=== PATIENT | male | born 1990 | race Caucasian/White ===

== ENCOUNTER 2017-09-11 20:22 | Emergency (ER) | payer BC, OTHER ==
[2017-09-11 20:36] VITALS: BP 146/81
[2017-09-11] MEDS ORDERED: Lidocaine 1% 50 ML MDV INJECT ONE (21:07)
--- NOTE | 2017-09-11 21:30 | EDM.PDOC ---
ED HPI GENERAL MEDICAL PROBLEM - General Chief Complaint: Laceration Stated Complaint: CUT ABOVE RIGHT EYE Time Seen by Provider: 09/11/17 20:32 Source of Information: Reports: Patient, RN Notes Reviewed - History of Present Illness INITIAL COMMENTS - FREE TEXT/NARRATIVE: 26 year old male suffered lac to R eyebrow area playing softball, took a knee to the eyebrow, no LOC, mild localized pain, moderate bleeding has stopped. no other injury. Right Eye Pain Score (Numeric/FACES): 7 - Related Data Allergies Allergy/AdvReac Type Severity Reaction Status Date / Time Tetanus Vaccines and Toxoid Allergy cant Verified 09/11/17 20:38 remember Home Meds: Home Meds . [No Known Home Meds] 09/11/17 [History] Past Medical History - Past Health History Medical/Surgical History: Denies Medical/Surgical History Social & Family History - Tobacco Use Smoking Status *Q: Never Smoker - Caffeine Use Caffeine Use: Reports: None - Recreational Drug Use Recreational Drug Use: No ED ROS GENERAL - Review of Systems Review Of Systems: See Below Constitutional: Reports: No Symptoms HEENT: Reports: Other (lac R eyebrow) Respiratory: Reports: No Symptoms Cardiovascular: Denies: Chest Pain GI/Abdominal: Denies: Abdominal Pain, Nausea, Vomiting Musculoskeletal: Denies: Neck Pain Neurological: Denies: Dizziness, Headache ED EXAM, SKIN/RASH Exam: See Below General Appearance: Alert, No Apparent Distress Eye Exam: Bilateral Eye: PERRL Ears: Normal External Exam Nose: Normal Inspection Throat/Mouth: Normal Inspection Head: Other (2 cm lac R eybrow, jagged, gaping) Respiratory/Chest: No Respiratory Distress Neurological: Alert, Oriented, No Motor/Sensory Deficits Skin: Warm, Dry, Normal Color ED SKIN PROCEDURES - Laceration/Wound Repair Right Face Lac/Wound length In cm: 2 Appearance: Stellate, Irregular Distal NVT: Neuro & Vascular Intact Anesthetic Type: Local Local Anesthesia - Lidocaine (Xylocaine): 1% Plain Skin Prep: Saline Suture Size: 4-0 # of Sutures: 6 Course - Vital Signs Last Recorded V/S: Last Vital Signs Temp 99.4 F 09/11/17 20:32 Pulse 81 09/11/17 20:32 Resp 18 09/11/17 20:32 BP 146/81 H 09/11/17 20:32 Pulse Ox 99 09/11/17 20:32 - Orders/Labs/Meds Meds: Medications Discontinued Medications Generic Name Dose Route Start Last Admin Trade Name La PRN Reason Stop Dose Admin Lidocaine HCl 50 ml 09/11/17 21:07 09/11/17 21:12 Xylocaine 1% INJECT 09/11/17 21:08 50 ml ONETIME ONE Administration Departure - Departure Time of Disposition: 21:50 Disposition: Home, Self-Care 01 Condition: Fair Clinical Impression: Facial laceration Qualifiers: Encounter type: initial encounter Qualified Code(s): S01.81XA - Laceration without foreign body of other part of head, initial encounter - Discharge Information Referrals: PCP,None [Primary Care Provider] - Forms: ED Department Discharge Additional Instructions: laceration care instr., antibiotic ointment 2 to 3 times daily, stitches out in about 7 days, there is no charge if you have those taken out at our [facility], call [phone] for appt.
== END 2017-09-11 22:00 | disposition home or self-care (01) ==
LOC: JD.ED 20:22
DX: S01.111A Laceration without foreign body of right eyelid and periocular area, initial encounter (principal); W51.XXXA Accidental striking against or bumped into by another person, initial encounter; Y93.64 Activity, baseball; Z88.7 Allergy status to serum and vaccine
CPT/HCPCS: 12011; 96361; 96374; 96375; 99282-25; 99284-25

== ENCOUNTER 2020-09-23 19:59 | Emergency (ER) | payer BC, OTHER ==
[2020-09-23 20:10] VITALS: BP 124/75; PULSE 83
[2020-09-23] MEDS ORDERED: Sodium Chloride 0.9% 10 ML Syringe FLUSH PRN (20:18)
--- NOTE | 2020-09-23 20:23 | EDM.PDOC ---
ED HPI GENERAL MEDICAL PROBLEM - General Chief Complaint: Abdominal Pain Stated Complaint: abdominal pain Time Seen by Provider: 09/23/20 20:10 Source of Information: Reports: Patient, RN Notes Reviewed History Limitations: Reports: No Limitations - History of Present Illness INITIAL COMMENTS - FREE TEXT/NARRATIVE: Patient is a 29-year-old male who presents to the ER for the evaluation of his severe abdomen pain. Notes this is periumbilical in nature, seems to worsen more when he does any sort of twisting movements. He is not had pain like this before ever. He is not taking any sort of medications for this. Patient is pretty physically fit, notes that he did some heavy squatting exercises on Saturday, he took yesterday off, and today his belly pain has become more severe. He has had chills, some shortness of breath, but no fevers, runny cough, or any sort of nausea/vomiting/diarrhea, he denies any sort of urinary issues. Further denies any past medical history, does not take any regular medications, and notes he has no bad habits like smoking drinking or doing drugs. Further denies any sort of abdomen surgeries. Patient notes the pain is a sharp stabbing pain in nature, seems to come and go, definitely worsens with movement and gets better when he is laying still. Abdomen Pain Score (Numeric/FACES): 7 - Related Data Allergies Allergy/AdvReac Type Severity Reaction Status Date / Time Tetanus Vaccines and Toxoid Allergy cant Verified 09/23/20 20:10 remember Home Meds: Home Meds . [No Known Home Meds] 09/11/17 [History] Past Medical History - Past Health History Medical/Surgical History: Denies Medical/Surgical History Social & Family History - Tobacco Use Tobacco Use Status *Q: Never Tobacco User - Caffeine Use Caffeine Use: Reports: None - Recreational Drug Use Recreational Drug Use: No ED ROS GENERAL - Review of Systems Review Of Systems: Comprehensive ROS is negative, except as noted in HPI. ED EXAM, GI/ABD - Physical Exam Exam: See Below Exam Limited By: No Limitations General Appearance: Alert, WD/WN, No Apparent Distress Respiratory/Chest: No Respiratory Distress, Lungs Clear, Normal Breath Sounds, No Accessory Muscle Use, Chest Non-Tender Cardiovascular: Normal Peripheral Pulses, Regular Rate, Rhythm, No Edema GI/Abdominal Exam: Normal Bowel Sounds, Soft, No Distention, No Mass, Tender (periumbilical, some RLQ rebound tenderness) Extremities: Normal Inspection, Normal Capillary Refill Neurological: Alert, Oriented, Normal Cognition, No Motor/Sensory Deficits Psychiatric: Normal Affect, Normal Mood Skin Exam: Warm, Dry, Intact, Normal Color, No Rash Course - Vital Signs Last Recorded V/S: Last Vital Signs Temp 97.9 F 09/23/20 20:07 Pulse 83 09/23/20 20:07 Resp 16 09/23/20 20:07 BP 124/75 09/23/20 20:07 Pulse Ox 96 09/23/20 20:07 - Orders/Labs/Meds Orders: Active Orders 24 hr Category Date Time Status Peripheral IV Care [RC] . DIRECTED Care 09/23/20 20:18 Ordered Sodium Chloride 0.9% [Normal Saline] 1,000 ml Med 09/23/20 21:23 Ordered IV ONETIME Sodium Chloride 0.9% [Normal Saline] 100 ml Med 09/23/20 21:00 Active IV ASDIRECTED Sodium Chloride 0.9% [Saline Flush] Med 09/23/20 20:18 Ordered 10 ml FLUSH ASDIRECTED PRN Sodium Chloride 0.9% [Saline Flush] Med 09/23/20 21:00 Active 10 ml FLUSH BOLUS Peripheral IV Insertion Adult [OM.PC] Routine Oth 09/23/20 20:17 Ordered Medication Orders Sodium Chloride (Normal Saline) 100 mls @ 60 drops/sec IV ASDIRECTED BRITTANIE Last Admin: 09/23/20 20:58 Dose: 60 drops/sec Documented by: Infusion: 09/23/20 20:58 Dose: 60 drops/sec Documented by: Admin: 09/23/20 20:57 Dose: 60 drops/sec Documented by: ONEIGIN Sodium Chloride (Normal Saline) 1,000 mls @ 999 mls/hr IV ONETIME ONE Stop: 09/23/20 22:23 Last Admin: 09/23/20 21:30 Dose: 999 mls/hr Documented by: Sodium Chloride (Sodium Chloride 0.9% 10 Ml Syringe) 10 ml FLUSH ASDIRECTED PRN PRN Reason: Keep Vein Open Last Admin: 09/23/20 20:22 Dose: 10 ml Documented by: TELLY Sodium Chloride (Sodium Chloride 0.9% 10 Ml Syringe) 10 ml FLUSH BOLUS BRITTANIE Last Admin: 09/23/20 20:58 Dose: 10 ml Documented by: LIDIA Labs: Laboratory Tests 09/23/20 09/23/20 Range/Units 20:27 20:27 WBC 6.58 (4.23-9.07) K/mm3 RBC 5.20 (4.63-6.08) M/mm3 Hgb 16.0 D (13.7-17.5) gm/dl Hct 46.0 (40.1-51.0) % MCV 88.5 (79.0-92.2) fl MCH 30.8 (25.7-32.2) pg MCHC 34.8 (32.2-35.5) g/dl RDW Std Deviation 43.2 (35.1-43.9) fL Plt Count 207 (163-337) K/mm3 MPV 10.1 (9.4-12.3) fl Neut % (Auto) 76.4 H (34.0-67.9) % Lymph % (Auto) 13.4 L (21.8-53.1) % [place] % (Auto) 9.6 (5.3-12.2) % Eos % (Auto) 0.2 L (0.8-7.0) Baso % (Auto) 0.2 (0.1-1.2) % Neut # (Auto) 5.04 (1.78-5.38) K/mm3 Lymph # (Auto) 0.88 L (1.32-3.57) K/mm3 [place] # (Auto) 0.63 (0.30-0.82) K/mm3 Eos # (Auto) 0.01 L (0.04-0.54) K/mm3 Baso # (Auto) 0.01 (0.01-0.08) K/mm3 Sodium 137 (136-145) mEq/L Potassium 3.8 (3.5-5.1) mEq/L Chloride 101 (98-107) mEq/L Carbon Dioxide 25 (21-32) mEq/L Anion Gap 14.8 (5-15) BUN 18 (7-18) mg/dL Creatinine 1.2 (0.7-1.3) mg/dL Est Cr Clr Drug Dosing 109.54 mL/min Estimated GFR (MDRD) > 60 (>60) mL/min BUN/Creatinine Ratio 15.0 (14-18) Glucose 93 (70-99) mg/dL Calcium 8.6 (8.5-10.1) mg/dL Total Bilirubin 0.7 (0.2-1.0) mg/dL GGT 7 L (15-85) U/L AST 25 (15-37) U/L ALT 32 (16-63) U/L Alkaline Phosphatase 65 (46-116) U/L C-Reactive Protein 2.9 H* (<1.0) mg/dL Total Protein 7.0 (6.4-8.2) g/dl Albumin 3.7 (3.4-5.0) g/dl Globulin 3.3 gm/dL Albumin/Globulin Ratio 1.1 (1-2) Lipase 129 (73-393) U/L Meds: Medications Generic Name Dose Route Start Last Admin Trade Name Freq PRN Reason Stop Dose Admin Sodium Chloride 100 mls @ 60 drops/sec 09/23/20 21:00 09/23/20 20:58 Normal Saline IV 60 drops/sec ASDIRECTED BRITTANIE Administration Sodium Chloride 1,000 mls @ 999 mls/hr 09/23/20 21:23 09/23/20 21:30 Normal Saline IV 09/23/20 22:23 999 mls/hr ONETIME ONE Administration Sodium Chloride 10 ml 09/23/20 20:18 09/23/20 20:22 Sodium Chloride 0.9% 10 Ml Syringe FLUSH 10 ml ASDIRECTED PRN Administration Keep Vein Open Sodium Chloride 10 ml 09/23/20 21:00 09/23/20 20:58 Sodium Chloride 0.9% 10 Ml Syringe FLUSH 10 ml BOLUS BRITTANIE Administration Discontinued Medications Generic Name Dose Route Start Last Admin Trade Name Freq PRN Reason Stop Dose Admin Iopamidol 100 ml 09/23/20 20:56 09/23/20 20:57 Iopamidol 612 Mg/Ml 100 Ml Bottle IVPUSH 09/23/20 20:57 100 ml ONETIME ONE Administration - Re-Assessments/Exams Free Text/Narrative Re-Assessment/Exam: 09/23/20 20:23 Patient resents to the ER for evaluation of his abdomen pain, we will get some basic labs, and abdomen pelvis CT with IV contrast for further evaluation. Patient states he would like to hold off on pain medication at this time. 09/23/20 21:12 CT has been performed, there are mildly dilated air and fluid-filled small bowel as well as fluid-filled colon. Findings either due to diffuse ileus or diffuse gastroenteritis, possible dehydration as noted above, I do believe the ileus would fit more the clinical picture, patient CBC is unremarkable, metabolic panel is unremarkable but his CRP is 2.9. The appendix was also seen on the CT, and appear to be within normal limits, no other pelvic adenopathy or mass was appreciated. There is no free fluid or inflammatory change seen within the pelvis. The radiologist is also questioning possible dehydration, due to lack of contrast noted within the ureters. 09/23/20 21:33 v-rad has also read the CT and notes that the distal aspect of the appendix measures up to approximately 8 to 9 mm however there is no definite inflammatory stranding apparent. They have also appreciated numerous relatively small to borderline mesenteric lymph nodes. Departure - Departure Time of Disposition: 21:17 Disposition: Home, Self-Care 01 Condition: Good Clinical Impression: Ileus, Dehydration - Discharge Information *PRESCRIPTION DRUG MONITORING PROGRAM REVIEWED*: No *COPY OF PRESCRIPTION DRUG MONITORING REPORT IN PATIENT TI: No Instructions: Ileus, Dehydration, Adult, [id number] Referrals: PCP,None [Primary Care Provider] - Forms: ED Department Discharge Additional Instructions: You have been evaluated in the ED for abdominal pain. Laboratory evaluation demonstrated no acute abnormalities like elevated white count or electrolyte imbalances. Your markers for inflammation were slightly increased, which sometimes can be a normal abnormal finding. Your CT demonstrated diffuse ileus or gastroenteritis, ileus is where the bowels slowed down, or are acting somewhat sluggish. There is also possible dehydration question. Your appendix was found, but it is at the upper limits of normal. There was no other abdominal pathology that would suggest a cause of your abdomen pain today. Over the next 24-48 hours please try to increase oral intake of clear liquids and advance as tolerated to a bland diet. Please monitor your symptoms for the next 12 to 24 hours, if they are not getting much better, or you are developing worsening symptoms like fevers/chills, pain that seems to be migrating into the right lower quadrant, these would be cause for concern to come back to the ER for emergent medical management. Please return to the ED if your symptoms should change or worsen. Sepsis Event Note (ED) - Evaluation Sepsis Screening Result: No Definite Risk - Focused Exam Vital Signs: Vital Signs Temp Pulse Resp BP Pulse Ox 09/23/20 20:07 97.9 F 83 16 124/75 96 - My Orders Last 24 Hours: My Active Orders 09/23/20 20:17 Peripheral IV Insertion Adult [OM.PC] Routine 09/23/20 20:18 Peripheral IV Care [RC] . DIRECTED Sodium Chloride 0.9% [Saline Flush] 10 ml FLUSH ASDIRECTED PRN 09/23/20 21:00 Sodium Chloride 0.9% [Normal Saline] 100 ml IV ASDIRECTED Sodium Chloride 0.9% [Saline Flush] 10 ml FLUSH BOLUS 09/23/20 21:23 Sodium Chloride 0.9% [Normal Saline] 1,000 ml IV ONETIME - Assessment/Plan Last 24 Hours: My Active Orders 09/23/20 20:17 Peripheral IV Insertion Adult [OM.PC] Routine 09/23/20 20:18 Peripheral IV Care [RC] . DIRECTED Sodium Chloride 0.9% [Saline Flush] 10 ml FLUSH ASDIRECTED PRN 09/23/20 21:00 Sodium Chloride 0.9% [Normal Saline] 100 ml IV ASDIRECTED Sodium Chloride 0.9% [Saline Flush] 10 ml FLUSH BOLUS 09/23/20 21:23 Sodium Chloride 0.9% [Normal Saline] 1,000 ml IV ONETIME
[2020-09-23] MEDS ORDERED: Iopamidol 612 MG/ML 100 ML Bottle IVPUSH ONE (20:56)
[2020-09-23] MEDS: Sodium Chloride 0.9% 100 ML IV SCH ×2 (20:57→20:58)
[2020-09-23] MEDS ORDERED: Sodium Chloride 0.9% 10 ML Syringe FLUSH SCH (21:00)
--- NOTE | 2020-09-23 21:09 | CT ---
CT abdomen and pelvis Technique: Multiple axial sections were obtained from above the dome of the diaphragm inferiorly through the pubic symphysis. Intravenous contrast was utilized. No oral contrast has been given. Delayed images were also obtained. Reconstructed coronal and sagittal images were obtained. Comparison: Prior CT abdomen and pelvis study of 04/04/15. Findings: Visualized portion of the lung bases show a small nodule within the left lower lung which appears to be stable. No acute abnormality is seen within the visualized lung bases. Liver contains no focal parenchymal abnormality. Spleen size is normal. Adrenal glands show no nodule. Kidneys show symmetric contrast enhancement. Small cyst is noted within the lower right kidney which is stable. Pancreas shows no discrete abnormality. Gallbladder contains no calcified gallstones. Abdominal aorta shows no aneurysm. No retroperitoneal adenopathy is seen. Mildly dilated loops of small bowel containing air and fluid. Fluid also noted within the colon. Appendix is seen which is normal. No pelvic mass or adenopathy is identified. No free fluid or inflammatory change is seen. Lack of contrast is noted on delayed images within the ureters suggesting dehydration. Bone window settings were reviewed which show no acute osseous abnormality. Impression: 1. Mildly dilated air and fluid-filled small bowel as well as fluid-filled colon. Findings either due to diffuse ileus or diffuse gastroenteritis. 2. Possible dehydration as noted above. 3. Other findings believed to be incidental as noted above. Diagnostic code #3
[2020-09-23] MEDS ORDERED: Sodium Chloride 0.9% 1,000 ML IV ONE (21:23)
== END 2020-09-23 22:30 | disposition home or self-care (01) ==
LOC: JD.ED 19:59
DX: K56.7 Ileus, unspecified (principal); E86.0 Dehydration; Z88.7 Allergy status to serum and vaccine
CPT/HCPCS: 36415; 74177; 80053; 82977; 83690; 85025; 86140; 99284; J7030; Q9967; 99283